=== PATIENT | female | born 1980 | race Caucasian/White ===

== ENCOUNTER 2017-11-15 16:39 | Emergency (ER) | payer BC ==
[~2017-11-15] VITALS: Ht 157.5 cm; Wt 63.5 kg
[~2017-11-15 16:39] MED LIST: CIPRO500 MG PO; FLAGYL500 MG PO; IBUPROFEN 800800 M1 PO; NAPROSYN500 MG PO; NORCO 5-325 TA1 EACH PO; NORFLEX100 MG PO; PYRIDIUM100 M1 PO; TOPROL XL25 MG PO; TRAMADOL 50 MG50 MG PO; ZOFRAN ODT4 MG PO
[2017-11-15 17:29] LABS: ABSOLUTE EOSINOPHILS 0.1 thou/uL (0.0-0.7); ABSOLUTE LYMPHOCYTES 2.1 thou/uL (0.8-5.3); ABSOLUTE MONOCYTES 0.5 thou/uL (0.0-1.2); ABSOLUTE NEUTROPHILS 4.6 thou/uL (1.6-8.1); BASOPHILS 0.3 %; EOSINOPHILS 0.7 %; HEMATOCRIT 40.2 % (37.0-47.0); HEMOGLOBIN 13.9 gm/dL (12.0-15.0); LYMPHOCYTES 28.6 %; MCH 30.4 pg (26.0-34.0); MCHC 34.5 g/dL (28.0-37.0); MCV 88.1 fL (80.0-100.0); MONOCYTES 6.3 %; MPV 7.4 fl. (7.2-11.1); NUCLEATED RBCS 0 /100WBC; PLATELET COUNT* 231 thou/uL (150-400); POLYS 64.1 %; RBC 4.56 mil/uL (4.20-5.00); RDW-CV 12.2 % (10.5-14.5); WBC 7.2 thou/uL (4.0-11.0)
[2017-11-15 17:37] LABS: CALCIUM 9.1 mg/dL (8.5-10.1); CREATININE 0.6 mg/dL (0.6-1.3)
[2017-11-15 17:41] LABS: ALBUMIN 4.5 g/dL (3.4-5.0); TOTAL BILIRUBIN 0.7 mg/dL (<0.1-1.0); TOTAL PROTEIN 8.1 g/dL (6.4-8.2)
[2017-11-15 18:39] LABS: URINE BILIRUBIN NEGATIVE (Negative); URINE BLOOD NEGATIVE (Negative); URINE CLARITY CLEAR; URINE COLOR YELLOW; URINE GLUCOSE-RANDOM NEGATIVE (Negative); URINE KETONES 1+ (Negative); URINE LEUKOCYTES-REFLEX NEGATIVE (Negative); URINE NITRITE-REFLEX NEGATIVE (Negative); URINE PROTEIN NEGATIVE (Negative); URINE UROBILINOGEN 0.2 E.U./dl (0.2-1.0)
[2017-11-15] MEDS ORDERED: ZOFRAN4 MG PO (19:53)
[2017-11-15] MEDS ORDERED: ACETAMINOPHEN-1 EAC1 PO (19:53)
[2017-11-15 20:20] VITALS: BP 117/80
--- NOTE | 2017-11-16 13:03 | EKG ---
[place] [address] ELECTROCARDIOGRAM REPORT Name: ZAMZAM ZIMMER Room: [facility]#: [id number] Admission: 11/15/17 Attend Phys: Discharge: 11/15/17 Date of : 84 Report #: [id number] THIS REPORT FOR: //name// 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[place] : 1980 Requested By: Zamzam Bal Order Number: [id number] MD: Hipolito Escobar Measurements Intervals [place] Rate: 90 P: 83 DC: 156 QRS: 7 QRSD: 84 T: 57 QT: 354 QTc: 433 Interpretive Statements Sinus rhythm Probable left atrial enlargement Low voltage, precordial leads No previous ECG available for comparison Electronically Signed On 11-16-2017 13:03:22 CDT by Hipolito Escobar [email or web address] <ELECTRONICALLY SIGNED> By: Hipolito Escobar MD, [facility] 11/16/17 1303 56 56 Hipolito Escobar MD, FACC /EPI
== END 2017-11-15 20:21 | disposition home or self-care (01) ==
LOC: M.ERS 16:39
PROVIDERS: Nurse Practitioner Family
DX: R10.11 Right upper quadrant pain (principal); R10.13 Epigastric pain; R10.12 Left upper quadrant pain; R11.0 Nausea; Z90.49 Acquired absence of other specified parts of digestive tract

== ENCOUNTER 2018-03-20 10:16 | Observation (INO) | payer OTHER ==
[~2018-03-20] VITALS: Ht 157.5 cm; Wt 69.9 kg
[~2018-03-20 10:16] MED LIST changes: +ACETAMINOPHEN-1 EAC1 PO; +ZOFRAN4 MG PO
[2018-03-20 10:23] VITALS: BP 134/94
[2018-03-20] MEDS ORDERED: AMITRIPTYLINE H10 M3 PO (10:27)
[2018-03-20 10:56] LABS: ABSOLUTE EOSINOPHILS 0.1 thou/uL (0.0-0.7); ABSOLUTE LYMPHOCYTES 1.5 thou/uL (0.8-5.3); ABSOLUTE MONOCYTES 0.4 thou/uL (0.0-1.2); ABSOLUTE NEUTROPHILS 2.8 thou/uL (1.6-8.1); BASOPHILS 0.5 %; EOSINOPHILS 1.4 %; HEMATOCRIT 37.9 % (37.0-47.0); HEMOGLOBIN 12.8 gm/dL (12.0-15.0); MCH 29.8 pg (26.0-34.0); MCHC 33.9 g/dL (28.0-37.0); MONOCYTES 7.4 %; MPV 6.6 fl. (7.2-11.1); NUCLEATED RBCS 0 /100WBC; PLATELET COUNT* 233 thou/uL (150-400); POLYS 58.7 %; RBC 4.31 mil/uL (4.20-5.00); RDW-CV 12.5 % (10.5-14.5); WBC 4.8 thou/uL (4.0-11.0)
[2018-03-20 11:04] LABS: ANION GAP 5 mmol/L (7-16); BUN 16 mg/dL (7-18); CALCIUM 8.7 mg/dL (8.5-10.1); CHLORIDE 105 mmol/L (98-107); CO2 30 mmol/L (21-32); CREATININE 0.6 mg/dL (0.6-1.3); GLUCOSE 110 mg/dL (70-99); POTASSIUM 3.9 mmol/L (3.5-5.1); SODIUM 140 mmol/L (136-145)
[2018-03-20 11:19] LABS: ALBUMIN 3.8 g/dL (3.4-5.0); ALKALINE PHOSPHATASE 58 U/L (46-116); LIPASE 128 U/L (73-393); NT-PRO BRAIN NAT PEPTIDE 23 pg/mL (<300); SGOT 15 U/L (15-37); SGPT 24 U/L (30-65); TOTAL BILIRUBIN 0.5 mg/dL (<0.1-1.0); TOTAL PROTEIN 6.9 g/dL (6.4-8.2); TROPONIN-I LEVEL <0.06 ng/mL (<0.06)
[2018-03-20 11:31] LABS: URINE BILIRUBIN NEGATIVE (Negative); URINE BLOOD TRACE (Negative); URINE CLARITY CLEAR; URINE COLOR YELLOW; URINE GLUCOSE-RANDOM NEGATIVE (Negative); URINE KETONES NEGATIVE (Negative); URINE LEUKOCYTES NEGATIVE (Negative); URINE NITRITE NEGATIVE (Negative); URINE PROTEIN NEGATIVE (Negative); URINE SPECIFIC GRAVITY 1.015 (1.005-1.030); URINE UROBILINOGEN 0.2 E.U./dl (0.2-1.0)
[2018-03-20 11:40] LABS: AMP/METHAMP Negative (Negative); BARBITURATES Negative (Negative); BENZODIAZEPINES Negative (Negative); COCAINE Negative (Negative); METHADONE Negative (Negative); OPIATES Negative (Negative); PCP Negative (Negative); THC Negative (Negative)
--- NOTE | 2018-03-20 14:18 | EKG ---
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
[2018-03-20 15:23] VITALS: BP 132/87
[2018-03-20 15:55] VITALS: BP 123/87
[2018-03-20 17:20] LABS: CHOLESTEROL 135 mg/dL (<200); HDL CHOLESTEROL 50 mg/dL (>40); LDL CHOLESTEROL 71 mg/dL (<100); TC:HDL 2.7 Ratio (Not establshd); TRIGLYCERIDE 72 mg/dL (<150); VLDL 14 mg/dL (<40)
[2018-03-20 17:28] LABS: SERUM ASSESSMENT Clear
--- NOTE | 2018-03-20 18:17 | NUR ---
ADMISSION ASSESSMENT AND HISTORY COMPLETED REFER TO COMPUTER CHARTING. 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 PATIENT RESTING IN BED REPORTING NO SHORTNESS OF BREATH OR NAUSEA. PATIENT REPORTING A CONSTANT CHEST HEAVINESS. IV SALINE LOCKED. ON ROOM AIR. WILL CONTINUE TO MONITOR THIS SHIFT.
[2018-03-20 20:00] VITALS: BP 127/82
[2018-03-21] VITALS: BP 111/80
[2018-03-21 04:00] VITALS: BP 119/81
[2018-03-21 04:33] LABS: CHOLESTEROL 128 mg/dL (<200); HDL CHOLESTEROL 52 mg/dL (>40); LDL CHOLESTEROL 72 mg/dL (<100); TC:HDL 2.5 Ratio (Not establshd); TRIGLYCERIDE 21 mg/dL (<150); VLDL 4 mg/dL (<40)
[2018-03-21 05:08] LABS: SERUM ASSESSMENT CLEAR
--- NOTE | 2018-03-21 05:19 | NUR ---
ASSUMED PT CARE AT 1930. ASSESSMENT COMPLETED CHARTED. ABLE TO MAKE NEEDS KNOWN. PRESSURE AND PAIN IN CHEST STILL AT SAME 01/18 IT HAS BEEN FOR A DAY NOW. TRIED NITRO X 2 WITH NO RELIEF YET BLOOD PRESSURE WAS TOO LOW TO GIVE ANOTHER DOSE. TRIED MORPHINE X1 AND GAVE PT A BURNING HEADACHE THAT WENT AWAY WHEN THE PAIN MEDICINE WORN OFF YET DIDNT HELP HER CHEST PAIN OR HEADACHE. PT THEN C/O MIGRAINE AND TRIED TYLENOL FOR HER MIGRAINE WITH SOME RELEIF OF THE HEADACHE BUT NO RELIEF OF THE CHEST PAIN. UP AD GABRIEL, AT BEDSIDE. PT GETTING FRUSTRATED WITH THE TRIALS WITH NO RELIEF. WILL CONTINUE TO MONITOR.
[2018-03-21 07:30] VITALS: BP 122/85
--- NOTE | 2018-03-21 11:05 | EKG ---
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
[2018-03-21 11:28] VITALS: BP 116/74
--- NOTE | 2018-03-21 13:04 | EKG ---
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
--- NOTE | 2018-03-21 14:15 | NUR ---
Pt is A&O. Resides at home with her . Independent and active, continues to work outside of the home. No DME. No hx of HH or SNF. Goal is home at co. Following.
--- NOTE | 2018-03-21 16:30 | 2DMMODE ---
[place] [address] 2 D/M-MODE ECHOCARDIOGRAM Name: ZIMMERZAMZAM WassermanE Room: [address] Nelly#: [id number] Admission: 03/20/18 Attend Phys: Merrick Fairchild MD Discharge: Date of : 84 Date of Service: 03/21/18 1630 Report #: [id number] THIS REPORT FOR: //name// APPROVED REPORT Study performed: 03/21/2018 10:21:38 EXAM: Comprehensive 2D, Doppler, and color-flow Echocardiogram Patient Location: In-Patient Room #: 220 Status: routine BSA: 1.71 HR: 87 bpm BP: 122/85 mmHg Rhythm: NSR Other Information Study Quality: Good Indications Chest Pain 2D Dimensions IVSd: 9.66 (7-11mm) LVOT Diam: 20.02 (18-24mm) LVDd: 43.01 mm PWd: 8.09 (7-11mm) Ascending Ao: 26.84 (22-36mm) LVDs: 27.40 (25-40mm) Aortic Root: 29.11 mm Volumes Left Atrial Volume (Systole) LA ESV Index: 20.40 mL/m2 Aortic Valve AoV Peak Giacomo.: 1.19 m/s AO Peak Gr.: 5.62 mmHg LVOT Max P.73 mmHg AO Mean Gr.: 3.19 mmHg LVOT Mean P.84 mmHg LVOT Max V: 0.97 m/s AO V2 VTI: 24.38 cm LVOT Mean V: 0.62 m/s MG (VTI): 2.48 cm2 LVOT V1 VTI: 19.22 cm Mitral Valve E/A Ratio: 1.42 MV Decel. Time: 236.20 ms MV E Max Giacomo.: 0.92 m/[place] [address] 2 D/M-MODE ECHOCARDIOGRAM Name: MESHAZAMZAM ARMANDO Room: [address] M.R.#: [id number] Admission: 03/20/18 Attend Phys: Merrick Fairchild MD Discharge: Date of : 84 Date of Service: 03/21/18 1630 Report #: [id number] MV PHT: 68.50 ms MVA (PHT): 3.21 cm2 TDI E/Lateral E': 4.38 E/Medial E': 6.13 Medial E' Giacomo.: 0.15 m/s Lateral E' Giacomo.: 0.21 m/s Pulmonary Valve PV Peak Giacomo.: 0.92 m/s PV Peak Gr.: 3.36 mmHg Left Ventricle The left ventricle is normal size. There is normal LV segmental wall motion. There is normal left ventricular wall thickness. Left ventricular systolic function is normal. LVEF is 60-65%. The left ventricular diastolic function is normal. Right Ventricle The right ventricle is normal size. The right ventricular systolic function is normal. Atria The left atrium size is normal. The right atrium size is normal. Aortic Valve The aortic valve is normal in structure. No aortic regurgitation is present. There is no aortic valvular stenosis. Mitral Valve The mitral valve is normal in structure. There is no mitral valve regurgitation noted. No evidence of mitral valve stenosis. Tricuspid Valve The tricuspid valve is normal in structure. Trace tricuspid regurgitation. Pulmonic Valve The pulmonary valve is normal in structure. There is no pulmonic valvular regurgitation. Great Vessels The aortic root is normal in size. IVC is normal in size and collapses >50% [place] [address] 2 D/M-MODE ECHOCARDIOGRAM Name: MESHAZAMZAM ARMANDO [address]#: [id number] Admission: 03/20/18 Attend Phys: Merrick Fairchild MD Discharge: Date of : 84 Date of Service: 03/21/18 1630 Report #: [id number] There is no pericardial effusion. <Conclusion> The left ventricle is normal size. There is normal left ventricular wall thickness. Left ventricular systolic function is normal. LVEF is 60-65%. The left ventricular diastolic function is normal. <ELECTRONICALLY SIGNED> By: Charles Sahu MD, FACC 03/21/18 163 29 29 Charles Sauh MD, FACC /INF
--- NOTE | 2018-03-21 18:02 | CARDNUC ---
[place] [address] CARDIAC NUCLEAR IMAGING REPORT Name: ZAMZAM ZIMMER Room: [address] M.RElen#: [id number] Admission: 03/20/18 Attend Phys: Merrick Fairchild MD Discharge: Date of : 84 Date of Service: 03/21/18 180 Report #: [id number] THIS REPORT FOR: //name// APPROVED REPORT Study performed: 03/21/2018 10:02:00 Indication: chest pain Patient Location: In-Patient Stress Tech: [facility] Stress Nurse: Manuela Ayala RN Ht: 5 ft 2 in Wt: 154 lbs BSA: 1.71 m2 BMI: 28.16 Medical History Medical History: none Medications: enoxaparin, aspirin 83 Allergies: nkda Cardiac Risk Factors: family hx Previous Cardiac Procedures: none Exercise History: Physically active Resting Data Rest SPECT myocardial perfusion imaging was performed in supine position 30 minutes following the intravenous injection of 11.4 mCi of Tc-99m Sestamibi. Time of rest injection: 13:55 The images were gated to evaluate regional wall motion and calculate left ventricular ejection fraction. Administration Route: IV Administration Site: Right Arm Pharmacologic Stress Pharmacologic stress test was performed by injecting Regadenoson 0.4 mg IV push over 10-15 seconds immediately followed by the intravenous injection of 35.0 mCi of Tc-99m Sestamibi. Time of stress injection: 15:05 Administration Route: IV Administration Site: Right Arm Heart Rate at time of stress injection: 156 bpm. Gated Stress SPECT was performed 40 minutes after stress injection. The images were gated to evaluate regional wall motion and calculate [place] [address] CARDIAC NUCLEAR IMAGING REPORT Name: ZAMZAM ZIMMER Room: [address]#: [id number] Admission: 03/20/18 Attend Phys: Merrick Fairchild MD Discharge: Date of : 84 Date of Service: 03/21/18 1802 Report #: [id number] Prone imaging was performed. Stress Test Details Stress Test: Pharmacologic stress testing performed using 0.4 mg of regadenoson per 5 mL given IV over 10 seconds. Reason for pharmacologic stress test: physical limitation. HR Max Heart Rate (APMHR): 185 bpm Resting HR: 120 bpm Target HR (85% APMHR): 157 bpm Max HR Achieved: 156 bpm % of APMHR: 84 Recovery HR: 119 bpm BP Resting BP: 119/97 mmHg Recovery BP: 117/81 mmHg ECG Resting ECG: Sinus Tachycardia Stress ECG: Sinus Tachycardia ST Change: None Arrhythmia: None Recovery ECG: Sinus Tachycardia Recovery ST Change: None Recovery Arrhythmia: None Clinical Reason for Termination: Completed protocol Exercise duration: 0 min sec Exercise capacity: 1 METs The patient tolerated Lexiscan infusion without significant symptoms. Nurse Comments meagan done for pt weakness. ucg negative, tropinin neg x 3 Stress ECG Conclusion The baseline 12-lead EKG shows sinus tachycardia without significant ST or T wave abnormality. EKGs during and post Lexiscan infusion show sinus tachycardia with no significant ST or T wave changes when compared to baseline. There were no stress-induced arrhythmias. Study Quality Study: Good Artifact: [place] [address] CARDIAC NUCLEAR IMAGING REPORT Name: ZAMZAM ZIMMER Room: [address]#: [id number] Admission: 03/20/18 Attend Phys: Merrick Fairchild MD Discharge: Date of : 84 Date of Service: 03/21/18 180 Report #: [id number] Study Data At rest, the left ventricular ejection fraction was 72%.. Post stress, the left ventricular ejection was 66%.. TID = 1.08. Perfusion Normal left ventricular perfusion. Wall Motion Normal left ventricular wall motion. Nuclear Conclusion ECG Findings: negative for ischemia Clinical Findings: negative for ischemia Nuclear Findings: negative for ischemia Exercise Capacity: not assessed Left Ventricular Function: normal Risk Study: low Myocardial perfusion images show no defect to suggest infarct or ischemia. Left ventricular systolic function appears normal on gated studies. This is a low risk study. <Conclusion> The baseline 12-lead EKG shows sinus tachycardia without significant ST or T wave abnormality. EKGs during and post Lexiscan infusion show sinus tachycardia with no significant ST or T wave changes when compared to baseline. There were no stress-induced arrhythmias. <ELECTRONICALLY SIGNED> By: Charles Sahu MD, FACC 03/21/181801 01 01 Charles Sahu MD, FACC /INF
[2018-03-21] MEDS ORDERED: PROTONIX40 M1 PO (18:08)
[2018-03-21 18:12] VITALS: BP 116/74
[2018-03-22 02:09] LABS: GLYCOHEMOGLOBIN (HGB A1C) 4.9 % (4.8-5.6)
--- NOTE | 2018-03-24 15:12 | CON ---
[address] [address] CONSULTATION Name: ZAMZAM ZIMMER Room: [address] Darrell Villegas#: [id number] Admission: 03/20/18 Attend Phys: Merrick Fairchild MD Discharge: 03/21/18 Date of : 84 Report #: [id number] THIS REPORT FOR: //name// CC: JENNIFER physician/PCP Merrick Fairchild DATE OF SERVICE: 03/20/2018 HISTORY OF PRESENT ILLNESS: The patient is a 37-year-old white female, who I was asked to see in the hospital after she complained of chest pain. The patient has no previous history of heart disease. She notes for the past 5 days, she has had a discomfort in her chest that radiates into her back. It has been constant, although tended to get worse and then better. The pain is not related to activity, meals or lifting. She denied any trauma to her chest. She does state that it makes her somewhat short of breath, diaphoretic, and nauseated. It seems to be worse if she takes a deep breath. She denies any leg pain or edema. She denies exertional dyspnea, palpitations, syncope. She has had no rash to her chest. PAST MEDICAL HISTORY: She is a , last menstrual period June. Since then, she has had a control ring placed. She has had appendectomy, a lump removed from her neck in the past. She has no history of hypertension, diabetes, or hyperlipidemia. MEDICATIONS: Her only medications include Elavil. ALLERGIES: She has no known drug allergies. FAMILY HISTORY: Significant for heart disease. Sister had coronary stent. SOCIAL HISTORY: She is . She and her live in [place], [place]. She works for a [employer] company. No smoking or alcohol abuse. REVIEW OF SYSTEMS: She has had no history of stroke, asthma, peptic ulcer disease, liver disease, kidney disease, skin problems, psychiatric illness. PHYSICAL EXAMINATION: GENERAL: A young female, who appeared in no distress. VITAL SIGNS: Blood pressure 130/90, pulse is 90. She is afebrile. HEENT: She is anicteric, conjunctiva pink. Mucous membranes moist. NECK: Neck veins not appeared to be distended. Neck is supple. CHEST: Clear to auscultation. HEART: Regular rate and rhythm without rub. ABDOMEN: Soft, nontender. EXTREMITIES: Had no edema, no Homans sign. Dorsalis pedis pulse 2+ [place] [address] CONSULTATION Name: ZAMZAM ZIMMER [address] [id number] Admission: 03/20/18 Attend Phys: Merrick Fairchild MD Discharge: 03/21/18 Date of : 84 Report #: [id number] SKIN: Warm, dry. RADIOLOGICAL DATA: ECG shows sinus rhythm. There is no ST or T-wave change. Her chest x-ray in the Emergency Room today showed normal heart size, clear lung hussein. LABORATORY DATA: Sodium 140, creatinine 0.6. Liver function studies were normal. Troponins all 0.06. TSH 3.1. Urine drug screen negative. White blood cell count 4.8, hemoglobin 12.8. IMPRESSION AND RECOMMENDATIONS: Chest pain. Suspect noncardiac. Recommend no further cardiac evaluation. Cause of chest pain is unclear. Suspect musculoskeletal. I would recommend an echocardiogram. <ELECTRONICALLY SIGNED> By: Terry Redding MD, FACC 03/24/18 1512 1558 0044Dmahendra Redding MD, FACC /nt
== END 2018-03-21 18:30 | disposition home or self-care (01) ==
LOC: M.ERS 10:16 → M.2W 12:53 → M.TBA-ER 12:53 → M.2W 15:33
PROVIDERS: Internal Medicine Cardiovascular Disease; Nurse Practitioner Family; ADMIT Family Medicine
DX: R07.2 Precordial pain (principal); R10.13 Epigastric pain; R00.0 Tachycardia, unspecified; G43.909 Migraine, unspecified, not intractable, without status migrainosus; Z90.49 Acquired absence of other specified parts of digestive tract; Z79.899 Other long term (current) drug therapy

== ENCOUNTER 2018-07-21 18:49 | Emergency (ER) | payer BC ==
[~2018-07-21] VITALS: Ht 157.5 cm; Wt 68.0 kg
[~2018-07-21 18:49] MED LIST changes: +AMITRIPTYLINE H10 M3 PO; +PROTONIX40 M1 PO
[2018-07-21 19:16] LABS: URINE BILIRUBIN NEGATIVE (Negative); URINE BLOOD 1+ (Negative); URINE CLARITY CLEAR; URINE COLOR YELLOW; URINE GLUCOSE-RANDOM NEGATIVE (Negative); URINE KETONES 1+ (Negative); URINE LEUKOCYTES-REFLEX NEGATIVE (Negative); URINE NITRITE-REFLEX NEGATIVE (Negative); URINE PROTEIN NEGATIVE (Negative); URINE SPECIFIC GRAVITY >= 1.030 (1.005-1.030); URINE UROBILINOGEN 0.2 E.U./dl (0.2-1.0)
[2018-07-21 19:41] LABS: HEMATOCRIT 40.2 % (37.0-47.0); HEMOGLOBIN 13.8 gm/dL (12.0-15.0); MCH 30.4 pg (26.0-34.0); MCHC 34.3 g/dL (28.0-37.0); MCV 88.7 fL (80.0-100.0); MPV 6.8 fl. (7.2-11.1); NUCLEATED RBCS 0 /100WBC; PLATELET COUNT* 204 thou/uL (150-400); RBC 4.54 mil/uL (4.20-5.00); RDW-CV 12.6 % (10.5-14.5); WBC 5.9 thou/uL (4.0-11.0)
[2018-07-21 19:56] LABS: ALBUMIN 4.1 g/dL (3.4-5.0); CALCIUM 8.7 mg/dL (8.5-10.1); CREATININE 0.7 mg/dL (0.6-1.3); POTASSIUM 3.8 mmol/L (3.5-5.1); TOTAL BILIRUBIN 0.7 mg/dL (<0.1-1.0); TOTAL PROTEIN 7.5 g/dL (6.4-8.2)
[2018-07-21 20:07] LABS: ABSOLUTE EOSINOPHILS 0.1 thou/uL (0.0-0.7); ABSOLUTE LYMPHOCYTES 0.1 thou/uL (0.8-5.3); ABSOLUTE MONOCYTES 0.3 thou/uL (0.0-1.2); ABSOLUTE NEUTROPHILS 5.5 thou/uL (1.6-8.1); PLATELET ESTIMATE ADEQUATE
[2018-07-21] MEDS ORDERED: ZOFRAN ODT4 MG PO (20:28)
[2018-07-21] MEDS ORDERED: BENTYL 20 MG TA20 M1 PO (20:28)
[2018-07-21 20:54] VITALS: BP 107/68
== END 2018-07-21 20:54 | disposition home or self-care (01) ==
LOC: M.ERS 18:49
PROVIDERS: Nurse Practitioner Family
DX: K29.70 Gastritis, unspecified, without bleeding (principal); K80.50 Calculus of bile duct without cholangitis or cholecystitis without obstruction; G43.909 Migraine, unspecified, not intractable, without status migrainosus; Z90.49 Acquired absence of other specified parts of digestive tract